=== PATIENT | female | born 1940 | race Caucasian/White ===

== ENCOUNTER → 2018-03-15 | Day surgery (SDC) | payer MEDICARE ==
[~2018-03-15] MED LIST: ADVA100A INH; ALEV220T14 PO; BUPIVACAINE HCL PF 0.5% 30 ML VIAL ONE; CITA40TA4 PO; IBUP1TAB5 PO; LISI-515 PO; OMEP20CA2; PROPOFOL 200 MG/20 ML AMP IV ONE; TRIAMCINOLONE ACETONIDE 40 MG/ML VIAL I-ARTICULR ONE; ZANA4CAP PO
--- NOTE | 2018-03-15 09:59 | M6 ---
cc: Windy Arreola MD DATE: 03/15/2018 PROCEDURE PERFORMED: Fluoroscopically-guided injection, bilateral cervical facet joints (bilateral C2-3 C3-4 and C4-5). History and physical was completed and signed. Consent was signed. Procedure site was marked. Medications were listed and reconciled. Pain score was recorded. Allergies were noted. Time out was taken. Fluoroscopy time was recorded where applicable. Sedation was administered or directed by Dr. Arreola. The patient was given oxygen. The patient was monitored by a registered nurse. Total procedure time was greater than 15 minutes. PROCEDURE NOTE: IV was started. Blood pressure cuff, pulse oximeter and EKG were applied. The patient was placed in the prone position on a Anthony table, sedated with small amounts of propofol titrated to effect. Vital signs were monitored and remained stable throughout the procedure. The cervical area was prepped with alcohol and 10% Betadine solution and draped with sterile drapes. Fluoroscopy was used to visualize the bilateral cervical facet joints at C2-3, C3-4, and C4-5. Separate sterile 3.5 3.5-inch, 25-gauge spinal needles were advanced into these joints under fluoroscopic guidance. There was negative aspiration for blood or any other type of fluid and at each location, the patient was given 1 mL of Marcaine 0.5%, which contained 10 mg of Kenalog. Following the procedure, the patient was taken to the recovery room with stable vital signs neurologically intact. She will be evaluated immediately and with followup to determine if she has a subjective decrease in her usual pain and a corresponding objective increase in her functional capabilities. MD HOLLY Self/DEVIN , 09:49 AM , 09:58 AM
== END | disposition home or self-care (01) ==
LOC: PHSDC 08:04
PROVIDERS: ATTEND Pain Medicine Interventional Pain Medicine
DX: M54.2 Cervicalgia (principal)
CPT/HCPCS: 64490; 64491; 64492; 99152; J3301